=== PATIENT | female | born 1985 | race Caucasian/White ===

== ENCOUNTER 2016-09-22 19:06 | Emergency (ER) | payer MEDICAID ==
[2016-09-22] MEDS ORDERED: 0.9 % SODIUM CHLORIDE 1,000 ML BAG IV ONE (19:33)
[2016-09-22] MEDS ORDERED: HYDROMORPHONE HCL 1 MG/ML CPJ IVP ONE ×2 (19:33→20:39)
[2016-09-22] MEDS ORDERED: ONDANSETRON HCL IV 4 MG/2 ML VIAL IVP ONE (19:33)
--- NOTE | 2016-09-22 19:51 | Emergency Department Record ---
History of Present Illness - General Chief complaint: Flank Pain Stated complaint: KIDNEY STONES Time Seen by Provider: 09/22/16 19:23 Source: Patient Mode of Arrival: Ambulatory Limitations: No limitations - History of Present Illness Initial comments: The patient is here due to R flank pain for one day. She was seen yesterday at [facility] and diagnosed with a R sided stone in her ureter. Now she is having increased pain but did not want to go back to [facility] due to the ER wait. She denies any vomiting, or fever. Onset/Timin -: Days(s) Radiation: R flank - Related Data Home Medications Medication Instructions Recorded Confirmed Last Taken Acetaminophen with Codeine 1 tab PO ASDIR 09/22/16 09/22/16 Unknown [Acetaminophen-Cod #3 Tablet] Albuterol Sulfate [Ventolin Hfa] 1 puff INH ASDIR 09/22/16 09/22/16 Unknown Fluticasone/Salmeterol [Advair 1 puff INH ASDIR 09/22/16 09/22/16 Unknown 250-50 Diskus] Hydroxyzine HCl [Hydroxyzine HCl] 25 mg PO ASDIR 09/22/16 09/22/16 Unknown Ibuprofen [Motrin] 600 mg PO ASDIR 09/22/16 09/22/16 Unknown Pnv with Ca,No.72/Iron/FA 1 tab PO DAILY 09/22/16 09/22/16 Unknown [ Vitamin Plus Low Iron] Venlafaxine HCl [Effexor Xr] 150 mg PO DAILY 09/22/16 09/22/16 Unknown Allergies Allergy/AdvReac Type Severity Reaction Status Date / Time tioconazole Allergy OTHER Verified 09/22/16 20:14 [From Monistat 1 (tioconazole)] Review of Systems Constitutional: Denies: Chills, Fever Eyes: Denies: Eye discharge ENT: Denies: Congestion Respiratory: Denies: Cough, Dyspnea Physical Exam - General General Appearance: Alert, Oriented x3, Cooperative, No acute distress - Head Head exam: Atraumatic, Normocephalic, Normal inspection - Eye Eye exam: Normal appearance, PERRL - Neck Neck exam: Normal inspection, Full ROM. negative: Lymphadenopathy, Meningismus , Tenderness - Respiratory Respiratory exam: Normal lung sounds bilaterally. negative: Respiratory distress - Cardiovascular Cardiovascular Exam: Regular rate, Normal rhythm, Normal heart sounds - GI/Abdominal GI/Abdominal exam: Soft. negative: Guarding, Rigid, Tenderness - Extremities Extremities exam: Normal inspection, Full ROM, Normal capillary refill. negative: Tenderness - Back Back exam: Reports: CVA tenderness (R) Course Vital Signs 09/22/16 09/22/16 19:18 19:42 Temperature 98.0 F Pulse Rate [ 89 Pulse Ox Probe] Respiratory 20 Rate Blood Pressure 76/57 123/78 [Left Arm] Pulse Ox 100 - Reevaluation(s) Reevaluation #1: The patient is doing better. I did review her results from [facility] from yesterday and she did have a 4 mm stone at the R UVJ. 09/22/16 20:39 09/22/16 21:04 Reevaluation #2: The patient is doing very well at this time. Her pain has resolved and she feels ready for home. She will F/U with Urology as directed and will return to the ER for any increased pain, fever, or vomiting. 09/22/16 21:04 Medical Decision Making - Data Complexity MDM Data: Labs Ordered and/or Reviewed, Review and Summary of Old Record Discussed (The CT yesterday did show a 4 mm stone in the R UVJ with moderate proximal hydro.) - Lab Data Result diagrams: 09/22/16 20:09 09/22/16 20:09 Disposition Disposition: Discharge Clinical Impression: Ureter colic Disposition: Home, Self-Care Condition: (1) Good Instructions: Flank Pain (ED) Additional Instructions: Please continue your pain medicines as directed and follow up with the Urologist as directed. Please return to the ER for any increased pain, fever, or vomiting. Forms: Patient Portal Access Time of Disposition: 21:03
[2016-09-22 20:26] LABS: URINE APPEARANCE CLEAR; URINE BILIRUBIN NEGATIVE (NEGATIVE); URINE BLOOD MODERATE (NEGATIVE); URINE COLOR YELLOW; URINE GLUCOSE (UA) NEGATIVE (NEGATIVE); URINE KETONE TRACE (NEGATIVE); URINE LEUKOCYTE ESTERASE NEGATIVE (NEGATIVE); URINE NITRITE NEGATIVE (NEGATIVE); URINE PROTEIN NEGATIVE (NEGATIVE); URINE UROBILINOGEN 0.2 E.U./dL (0.20 - 1.00)
[2016-09-22 20:29] LABS: GRAN % 73.5 % (47-80); HEMATOCRIT 44.2 % (35.0-47.0); HEMOGLOBIN 14.9 gm/dl (11.6-16.0); LYMPH % 17.9 % (16-45); MEAN CELL VOLUME 88.9 fl (81-97); MEAN CORPUSCULAR HGB CONC 33.7 g/dl (32-36); MEAN PLATELET VOLUME 10.6 fl (7.4-10.4); MONO % 6.6 % (0-9); PLATELET COUNT 326 K/uL (130-400); RED BLOOD COUNT 4.97 M/uL (3.80-5.40); RED CELL DISTRIBUTION WIDTH 12.8 % (11.5-14.5); WHITE BLOOD COUNT W/O DIFF 10.9 K/uL (4.2-12.2)
[2016-09-22 20:31] LABS: HCG,QUALITATIVE URINE NEGATIVE (NEGATIVE)
[2016-09-22] MEDS ORDERED: KETOROLAC 30 MG/ML VIAL IVP ONE (20:34)
[2016-09-22] MEDS ORDERED: TAMSULOSIN HCL 0.4 MG CAP.ER.24H PO ONE (20:34)
[2016-09-22 20:40] LABS: URINE EPITHELIAL CELLS 0 - 2 (FEW); URINE RBC 0 - 2 (NONE SEEN); URINE WBC 0 - 2 (0-2/hpf)
[2016-09-22 20:44] LABS: ANION GAP 13.6 (7-16); BLOOD UREA NITROGEN 12 mg/dL (7-17); CARBON DIOXIDE 24.4 mmol/L (22-30); CREATININE 0.8 mg/dL (0.52-1.04); EST GLOMERULAR FILTRATION RATE > 60 ml/min; GLUCOSE,RANDOM 108 mg/dL (70-110)
== END 2016-09-22 21:16 | disposition home or self-care (01) ==
LOC: ER 19:06
DX: N13.2 Hydronephrosis with renal and ureteral calculous obstruction (principal)
CPT/HCPCS: 99284 ×2; 96376; 96374; 96375; 85025; 80048; 81001; 81025; J1885; J2405; J1170; J7030

== ENCOUNTER 2016-09-23 10:55 | Emergency (ER) | payer MEDICAID ==
[2016-09-23] MEDS ORDERED: KETOROLAC 30 MG/ML VIAL IVP ONE (11:34)
--- NOTE | 2016-09-23 11:39 | Emergency Department Record ---
History of Present Illness - General Chief complaint: Flank Pain Stated complaint: FLANK PAIN Time Seen by Provider: 09/23/16 11:19 Source: Patient Mode of Arrival: Ambulatory Limitations: No limitations - History of Present Illness Initial comments: 31 yo female returns to ED following a recent diagnosis 2 days ago of a 4mm right UVJ ureteral stone at [facility], seen yesterday at [facility] for worsening pain symptoms. Patient felt better upon discharge last night, however mercedes pain symptoms returned this morning. Patient was not discharged home with any analgesia from either visit, reports that she has been taking Tylenol #3 that was previously prescribed to her, but reports the analgesia has not been helping. MD Complaint: Other (flank pain) Onset/Timin -: Days(s) Radiation: RLQ Severity: Severe Quality: Aching Consistency: Intermittent Improves with: None Worsens with: None LMP Date: 09/09/16 Gestational Age (wks) based on LMP: 2 Associated Symptoms: Denies other symptoms - Related Data Home Medications Medication Instructions Recorded Confirmed Last Taken Acetaminophen with Codeine 1 tab PO ASDIR 09/22/16 09/23/16 09/22/16 [Acetaminophen-Cod #3 Tablet] Albuterol Sulfate [Ventolin Hfa] 1 puff INH ASDIR 09/22/16 09/23/16 09/22/16 Fluticasone/Salmeterol [Advair 1 puff INH ASDIR 09/22/16 09/23/16 09/22/16 250-50 Diskus] Hydroxyzine HCl [Hydroxyzine HCl] 25 mg PO ASDIR 09/22/16 09/23/16 09/22/16 Ibuprofen [Motrin] 600 mg PO ASDIR 09/22/16 09/23/16 09/22/16 Pnv with Ca,No.72/Iron/FA 1 tab PO DAILY 09/22/16 09/23/16 09/22/16 [ Vitamin Plus Low Iron] Venlafaxine HCl [Effexor Xr] 150 mg PO DAILY 09/22/16 09/23/16 09/22/16 Previous Rx's Medication Instructions Recorded Hydrocodone/Acetaminophen [Okreek 1 tab PO Q6H PRN #10 tab 09/23/16 5mg/325mg] Allergies Allergy/AdvReac Type Severity Reaction Status Date / Time tioconazole Allergy OTHER Verified 09/22/16 20:14 [From Monistat 1 (tioconazole)] Travel Screening - Travel/Exposure Within Last 30 Days Have you traveled within the last 30 days?: No - Travel/Exposure Within Last Year Have you traveled outside the [place] in the last year?: No - Additonal Travel Details Have you been exposed to anyone with a communicable illness?: No - Travel Symptoms Symptom Screening: None Review of Systems Constitutional: Denies: Chills, Fever, Malaise, Night sweats Eyes: Denies: Eye discharge, Eye pain ENT: Denies: Congestion, Ear pain, Epistaxis Respiratory: Denies: Cough, Dyspnea Cardiovascular: Denies: Chest pain, Dyspnea on exertion Endocrine: Denies: Fatigue, Heat or cold intolerance Gastrointestinal: Reports: Abdominal pain. Denies: Nausea, Vomiting Genitourinary: Denies: Dysuria, Frequency, Hematuria Musculoskeletal: Reports: Back pain. Denies: Arthralgia, Gout, Joint swelling Skin: Denies: Bruising, Change in color Neurological: Denies: Abnormal gait, Confusion, Headache Psychiatric: Denies: Anxiety Hematological/Lymphatic: Denies: Anemia, Blood Clots Past Medical History - SOCIAL HISTORY Smoking Status: Current every day smoker Alcohol Use: None Drug Use: None - RESPIRATORY Hx Respiratory Disorders: No - CARDIOVASCULAR Hx Cardio Disorders: No - NEURO Hx Neuro Disorders: No - GI Hx GI Disorders: No - Hx Genitourinary Disorders: No - ENDOCRINE Hx Endocrine Disorders: No - MUSCULOSKELETAL Hx Musculoskeletal Disorders: No - PSYCH Hx Psych Problems: No - HEMATOLOGY/ONCOLOGY Hx Hematology/Oncology Disorders: No Family Medical History Any Significant Family History?: No Physical Exam - General General Appearance: Alert, Oriented x3, Cooperative, Moderate distress (appears painful on examination) Limitations: No limitations - Head Head exam: Atraumatic, Normocephalic, Normal inspection Head exam detail: negative: Abrasion, Contusion, Garza's sign, General tenderness, Hematoma, Laceration - Eye Eye exam: Normal appearance. negative: Conjunctival injection, Periorbital swelling, Periorbital tenderness, Scleral icterus - ENT Ear exam: negative: Auricular hematoma, Auricular trauma Nasal Exam: negative: Active bleeding, Discharge, Dried blood, Foreign body Mouth exam: negative: Drooling, Laceration, Muffled voice, Tongue elevation - Neck Neck exam: Normal inspection. negative: Meningismus, Tenderness - Respiratory Respiratory exam: Normal lung sounds bilaterally. negative: Rales, Respiratory distress, Rhonchi, Stridor - Cardiovascular Cardiovascular Exam: Regular rate, Normal rhythm, Normal heart sounds - GI/Abdominal GI/Abdominal exam: Soft, Tenderness (TTP RLQ, reports pain is radiating from the right flank). negative: Rebound, Rigid - Rectal Rectal exam: Deferred - exam: Deferred - Extremities Extremities exam: Normal inspection. negative: Pedal edema, Tenderness - Back Back exam: Reports: CVA tenderness (R). Denies: CVA tenderness (L) - Neurological Neurological exam: Alert, Normal gait, Oriented X3 - Psychiatric Psychiatric exam: Normal affect, Normal mood - Skin Skin exam: Normal color. negative: Abrasion Type of lesion: negative: abrasion Course Vital Signs 09/23/16 11:18 Temperature 97.4 F L Pulse Rate [ 89 Pulse Ox Probe] Respiratory 14 Rate Blood Pressure 103/69 [Left Arm] Pulse Ox 99 - Reevaluation(s) Reevaluation #1: 09/23/16 12:27 Labs reviewed, glucose is 49, labs are otherwise grossly unremarkable for an acute process, no evidence for super-imposed urinary tract infection on review. Patient reports that her pain symptoms are down to 6/10, but patient is asking for further analgesia. Will order Dilaudid per patient request for her continued pain symptoms. Reevaluation #2: 09/23/16 13:00 Patient reassessed, on her mobile phone and is well appearing immediately following Dilaudid administration. Will reassess in 15-20 minutes to ensure improvement in her symptoms. Reevaluation #3: 09/23/16 13:16 Patient reassessed, reports that she is feeling much better. Patient appears stable for discharge at this time, and reports that she has contact information for urologic follow-up next week. Medical Decision Making - Lab Data Result diagrams: 09/23/16 11:55 09/23/16 11:55 Disposition Disposition: Discharge Clinical Impression: Ureter colic Disposition: Home, Self-Care Condition: (2) Stable Instructions: Flank Pain (ED) Additional Instructions: Return to ED if your symptoms worsen or if you have any concerns. Follow-up with your Urologist in 1-3 days as directed. Okreek as needed for your pain symptoms. Prescriptions: Hydrocodone/Acetaminophen [[place]reek 5mg/325mg] 1 tab PO Q6H PRN #10 tab PRN Reason: Pain - General Forms: Patient Portal Access Time of Disposition: 13:18
[2016-09-23] MEDS ORDERED: 0.9 % SODIUM CHLORIDE 1000ML 1,000 ML IV SCH (11:45)
[2016-09-23 12:00] LABS: BASO % 0.3 % (0-6); EOS % 1.2 % (0-6); GRAN % 69.5 % (47-80); HEMOGLOBIN 14.6 gm/dl (11.6-16.0); LYMPH % 20.8 % (16-45); MEAN CELL VOLUME 88.2 fl (81-97); MEAN CORPUSCULAR HEMOGLOBIN 29.3 pg (27-33); MEAN CORPUSCULAR HGB CONC 33.2 g/dl (32-36); MEAN PLATELET VOLUME 9.2 fl (7.4-10.4); MONO % 8.2 % (0-9); PLATELET COUNT 368 K/uL (130-400); RED BLOOD COUNT 4.99 M/uL (3.80-5.40); RED CELL DISTRIBUTION WIDTH 12.7 % (11.5-14.5); WHITE BLOOD COUNT W/O DIFF 7.4 K/uL (4.2-12.2)
[2016-09-23 12:01] LABS: URINE APPEARANCE CLEAR; URINE BILIRUBIN NEGATIVE (NEGATIVE); URINE BLOOD MODERATE (NEGATIVE); URINE COLOR YELLOW; URINE GLUCOSE (UA) NEGATIVE (NEGATIVE); URINE KETONE NEGATIVE (NEGATIVE); URINE LEUKOCYTE ESTERASE NEGATIVE (NEGATIVE); URINE NITRITE NEGATIVE (NEGATIVE); URINE PROTEIN NEGATIVE (NEGATIVE); URINE UROBILINOGEN 0.2 E.U./dL (0.20 - 1.00)
[2016-09-23 12:12] LABS: URINE EPITHELIAL CELLS NONE SEEN (FEW); URINE WBC 0 - 2 (0-2/hpf)
[2016-09-23 12:13] LABS: URINE BACTERIA NONE SEEN
[2016-09-23 12:14] LABS: ALB/GLOB RATIO 1.6 (1.1-1.8); ALBUMIN 4.5 gm/dL (3.5-5.0); ALKALINE PHOSPHATASE 95 U/L (38-126); ALT/SGPT 23 U/L (9-52); ANION GAP 10.7 (7-16); AST/SGOT 20 U/L (14-36); BILIRUBIN,TOTAL 0.36 mg/dL (0.2-1.3); BLOOD UREA NITROGEN 12 mg/dL (7-17); CARBON DIOXIDE 26.3 mmol/L (22-30); CREATININE 0.9 mg/dL (0.52-1.04); EST GLOMERULAR FILTRATION RATE > 60 ml/min; TOTAL PROTEIN 7.4 gm/dL (6.3-8.2)
[2016-09-23 12:20] LABS: GLUCOSE,RANDOM 49 mg/dL (70-110)
[2016-09-23] MEDS ORDERED: HYDROMORPHONE HCL 1 MG/ML CPJ IVP ONE (12:30)
[2016-09-23] MEDS ORDERED: ONDANSETRON HCL IV 4 MG/2 ML VIAL IVP ONE (12:47)
== END 2016-09-23 13:34 | disposition home or self-care (01) ==
LOC: ER 10:55
DX: N20.1 Calculus of ureter (principal)
CPT/HCPCS: 99284 ×2; 96374; 96375; 96361; 85025; 80053; 81001; J1885; J2405; J1170; J7030